=== PATIENT | female | born 1995 | race Asian ===

== ENCOUNTER 2019-09-02 12:10 | Emergency (ER) | payer OTHER ==
[2019-09-02 12:40] LABS: ABS Eosinophils 0.1 10^3/ul (0-0.6); ABS Lymphocytes 1.5 10^3/ul (1.0-4.8); ABS Monocytes 0.3 10^3/ul (0-0.8); ABS Neutrophils 6.8 10^3/ul (1.5-7.7); Eosinophil % 1.1 %; Hematocrit 39 % (35-47); Hemoglobin 13.3 g/dL (12.0-16.0); Mean Corpuscular HGB Conc 34 g/dL (31-36); Mean Corpuscular Hemoglobin 31 pg (27-31); Mean Corpuscular Volume 91 fL (80-97); Mean Platelet Volume 9.3 fL (7.4-10.4); Platelet Count 207 10^3/uL (150-450); Red Blood Count 4.26 10^6 /uL (3.70-4.87); Red Cell Distribution Width 13 % (10-15); White Blood Count 8.7 10^3/uL (3.5-10.8)
[2019-09-02 12:56] LABS: ALT 15 U/L (7-52); AST 15 U/L (13-39); Albumin 4.5 g/dL (3.2-5.2); Albumin/Globulin Ratio 1.6 (1-3); Alkaline Phosphatase 43 U/L (34-104); Anion Gap 7 mmol/L (2-11); BUN/Creatinine Ratio 12.9 (8-20); Blood Urea Nitrogen 12 mg/dL (6-24); C Reactive Protein 18.06 mg/L (<8.01); CO2 Carbon Dioxide 26 mmol/L (22-32); Calcium 9.2 mg/dL (8.6-10.3); Chloride 103 mmol/L (101-111); EGFR African American 90.4 (>60); EGFR Non-African American 74.7 (>60); Globulin 2.8 g/dL (2-4); Glucose 95 mg/dL (70-100); Potassium 4.1 mmol/L (3.5-5.0); Sodium 136 mmol/L (135-145); Total Protein 7.3 g/dL (6.4-8.9)
[2019-09-02 13:01] LABS: HCG Pregnancy < 0.60 mIU/mL
--- NOTE | 2019-09-02 14:14 | ED ---
Abdominal Pain/Female - HPI Summary HPI Summary: This patient is a 24 year old female presenting to [facility] with a chief complaint of RLQ pain since 6 hours ago. She states she first felt it when she woke up this morning. She describes the pain as a cramping pain that aggravated when she was walking. She describes the pain as a constant pain. She states she still has her appendix. She reports fatigue. She denies Hx of ovarian cyst. Her LNMP was 3 weeks ago. Pt denies any fever, chills, erythema of eyes, sore throat , CP, SOB, cough, N/V, dysuria, hematuria, myalgia, edema, rash, or dizziness. She rates her pain 7/10 in severity. - History of Current Complaint Chief Complaint: EDAbdPain Stated Complaint: ABD PAIN PER PT Time Seen by Provider: 09/02/19 14:05 Hx Obtained From: Patient Onset/Duration: Lasting Hours Severity Initially: Moderate Severity Currently: Moderate Pain Intensity: 7 Pain Scale Used: 0-10 Numeric Location: Discrete At: RLQ Allergies/Adverse Reactions: Allergies Allergy/AdvReac Type Severity Reaction Status Date / Time nickel Allergy Hives Verified 09/02/19 12:16 Home Medications: Home Medications Levonorg 0.15MG-Ee 20-25-30Mcg 1 tab PO QPM 09/02/19 [History Confirmed 09/02/19 ] PMH/Surg Hx/FS Hx/Imm Hx Endocrine/Hematology History: Denies: Hx Diabetes Cardiovascular History: Denies: Hx Coronary Artery Disease Infectious Disease History: No Infectious Disease History: Denies: Traveled Outside the [place] in Last 30 Days - Family History Known Family History: Negative: Respiratory Disease - Social History Occupation: Student Lives: Dormitory/Roommates Review of Systems Positive: Fatigue. Negative: Fever, Chills Negative: Erythema Negative: Sore Throat Negative: Chest Pain Negative: Shortness Of Breath, Cough Positive: Abdominal Pain. Negative: Vomiting, Nausea Negative: dysuria, hematuria Negative: Myalgia, Edema Negative: Rash Neurological: Other - Neg: Dizziness All Other Systems Reviewed And Are Negative: No Physical Exam - Summary Physical Exam Summary: Constitutional: Well-developed, Well-nourished, Alert. (-) Distressed Skin: Warm, Dry HENT: Normocephalic; Atraumatic Eyes: Conjunctiva normal Neck: Musculoskeletal ROM normal neck. (-) JVD, (-) Stridor, (-) Tracheal deviation. No CVA tenderness. Cardio: Rhythm regular, rate normal, Heart sounds normal; Intact distal pulses; The pedal pulses are 2+ and symmetric. Radial pulses are 2+ and symmetric. (-) Murmur Pulmonary/Chest wall: Effort normal. (-) Respiratory distress, (-) Wheezes, (-) Rales Abd: Soft, RLQ tenderness, (-) Distension, (-) Guarding, (-) Rebound Musculoskeletal: (-) Edema Lymph: (-) Cervical adenopathy Neuro: Alert, Oriented x3 Psych: Mood and affect Normal Pelvic: Line O Scribe Operator Hope present. Normal external genitalia. No cervical motion tenderness, no adnexal tenderness, no discharge. Triage Information Reviewed: Yes Vital Signs On Initial Exam: Initial Vitals Temp Pulse Resp BP Pulse Ox 97.7 F 96 18 122/95 97 09/02/19 12:14 09/02/19 12:14 09/02/19 12:14 09/02/19 12:14 09/02/19 12:14 Vital Signs Reviewed: Yes Procedures - Sedation Patient Received Moderate/Deep Sedation with Procedure: No Diagnostics - Vital Signs Vital Signs Temp Pulse Resp BP Pulse Ox 09/02/19 12:14 97.7 F 96 18 122/95 97 - Laboratory Lab Results: Lab Results 09/02/19 09/02/19 Range/Units 12:26 12:26 WBC 8.7 (3.5-10.8) 10^3/uL RBC 4.26 (3.70-4.87) 10^6 /uL Hgb 13.3 (12.0-16.0) g/dL Hct 39 (35-47) % MCV 91 (80-97) fL MCH 31 (27-31) pg MCHC 34 (31-36) g/dL RDW 13 (10-15) % Plt Count 207 (150-450) 10^3/uL MPV 9.3 (7.4-10.4) fL Neut % (Auto) 78.5 % Lymph % (Auto) 17.0 % [place] % (Auto) 2.9 % Eos % (Auto) 1.1 % Baso % (Auto) 0.5 % Absolute Neuts (auto) 6.8 (1.5-7.7) 10^3/ul Absolute Lymphs (auto) 1.5 (1.0-4.8) 10^3/ul Absolute Monos (auto) 0.3 (0-0.8) 10^3/ul Absolute Eos (auto) 0.1 (0-0.6) 10^3/ul Absolute Basos (auto) 0.0 (0-0.2) 10^3/ul Absolute Nucleated RBC 0.0 10^3/ul Nucleated RBC % 0.0 Sodium 136 (135-145) mmol/L Potassium 4.1 (3.5-5.0) mmol/L Chloride 103 (101-111) mmol/L Carbon Dioxide 26 (22-32) mmol/L Anion Gap 7 (2-11) mmol/L BUN 12 (6-24) mg/dL Creatinine 0.93 (0.51-0.95) mg/dL Est GFR ( Amer) 90.4 (>60) Est GFR (Non-Af Amer) 74.7 (>60) BUN/Creatinine Ratio 12.9 (8-20) Glucose 95 (70-100) mg/dL Calcium 9.2 (8.6-10.3) mg/dL Total Bilirubin 0.60 (0.2-1.0) mg/dL AST 15 (13-39) U/L ALT 15 (7-52) U/L Alkaline Phosphatase 43 (34-104) U/L C-Reactive Protein 18.06 H (<8.01) mg/L Total Protein 7.3 (6.4-8.9) g/dL Albumin 4.5 (3.2-5.2) g/dL Globulin 2.8 (2-4) g/dL Albumin/Globulin Ratio 1.6 (1-3) Beta HCG, Quant < 0.60 mIU/mL Result Diagrams: 09/02/19 12:26 09/02/19 12:26 Lab Statement: Any lab studies that have been ordered have been reviewed, and results considered in the medical decision making process. - CT Abd/Pel CT Interpretation Completed By: Radiologist Summary of CT Findings: Distended urinary bladder. No obstructive uropathy is noted. The appendix is within normal limits. No evidence of bowel obstruction is noted. ED Provider has reviewed this report. - Ultrasound No standard instances Ultrasound Interpretation Completed By: Radiologist Summary of Ultrasound Findings: Transvaginal: No acute sonographic pathology of the visualized portion of the pelvis. No sonographic features of torsion. Please note that partial or intermittent torsion maybe sonographically normal. ED Provider has reviewed this report. Appendix: The appendix is not visualized. There is no free or loculated fluid within the right lower quadrant. ED provider has reviewed this report. Re-Evaluation - Re-Evaluation First Eval Re-Evaluation Time: 18:08 Change: Improved Comment: Pain has resolved to a 3/10 and migrated down to the suprapubic area. Abdominal Pain Fem Course/Dx - Course Course Of Treatment: This patient is a 24 year old female presenting to [facility] with a chief complaint of RLQ pain since 6 hours ago. Labs were unremarkable except CRP is 18.06. Imaging was unremarkable. CT Abd/Pel revealed distended urinary bladder. Upon reevaluation, pain had moved to the suprapubic region. Pelvic exam was then performed and was unremarkable. Discussed the remote possibility of early appendicitis. She was instructed to return to the ER if experiencing an severe pain or worsening symptoms. Plan for discharge was discussed with the patient and she was agreeable with this plan. - Diagnoses Provider Diagnoses: Lower abdominal pain Discharge ED - Sign-Out/Discharge Documenting (check all that apply): Patient Departure - Discharge - Discharge Plan Condition: Stable Disposition: HOME Patient Education Materials: Abdominal Pain (ED) Referrals: [facility] - Rahul MA [Primary Care Provider] - Additional Instructions: Return to ED with new or worsening symptoms. - Attestation Statements Document Initiated by Scribe: Yes Documenting Scribe: Erasto Anna Provider For Whom Scribe is Documenting (Include Credential): Arie Oleary MD Scribe Attestation: Erasto Vega, scribed for Arie Oleary MD on 09/02/19 at [id number]. Status of Scribe Document: Ready
[2019-09-02] MEDS ORDERED: Ondansetron INJ* 2 MG/ML VIAL IV ONE (14:18)
[2019-09-02] MEDS ORDERED: NS 0.9% 1000 ML** 1,000 ML IV ONE (14:18)
[2019-09-02] MEDS ORDERED: Iohexol 300* (CONTRAST) 10 ML SDV IV ONE (17:20)
[2019-09-02 17:57] LABS: Urine Appearance Clear; Urine Bilirubin Negative (Negative); Urine Blood Negative (Negative); Urine Color Yellow; Urine Glucose Negative (Negative); Urine Ketones Negative (Negative); Urine Nitrite Negative (Negative); Urine Protein Negative (Negative); Urine Urobilinogen Negative (Negative)
[2019-09-02 18:28] VITALS: BP 102/68
[2019-09-05 13:21] LABS: Trichomonas vag NAA Female Negative (Negative)
[2019-09-05 13:51] LABS: Chlamydia trachomatis NAA Negative (Negative); Neisseria gonorrhoeae (GC) NAA Negative (Negative)
== END 2019-09-02 18:28 | disposition home or self-care (01) ==
LOC: ED 12:10
DX: R10.31 Right lower quadrant pain (principal)
CPT/HCPCS: 36415; 74177; 76705; 76830; 80053; 81003; 84702; 85025; 86140; 87480; 87491; 87510; 87591; 87661; 96361; 96374; 99283; J2405; Q9967